=== PATIENT | female | born 1945 | race Two or more races ===

== ENCOUNTER 2023-02-25 20:39 | Inpatient (IN) | payer MEDICARE, OTHER ==
[~2023-02-25] VITALS: Ht 149.9 cm; Wt 51.7 kg
[2023-02-25] MEDS ORDERED: LEVO50TA8 PO (21:32)
[2023-02-25] MEDS ORDERED: FLUO20CA42 PO (21:35)
--- NOTE | 2023-02-25 22:00 | NUR ---
Patient taken down for CT.
--- NOTE | 2023-02-25 22:15 | NUR ---
Patient back from CT
--- NOTE | 2023-02-25 22:35 | NUR ---
Patient medically cleared by Dr. Zimmerman.
--- NOTE | 2023-02-25 22:45 | NUR ---
Report given to YVETTE Kent.
[2023-02-25] MEDS ORDERED: ROMO105S SQ (22:50)
[2023-02-25] MEDS ORDERED: ARIP300S3 IM (22:50)
[2023-02-26] MEDS ORDERED: MAG HYDROX/AL HYDROX/SIMETH 30 ML LIQUID UDC PO PRN
[2023-02-26] MEDS ORDERED: MAGNESIUM HYDROXIDE 30 ML LIQUID UDC PO PRN
[2023-02-26] MEDS ORDERED: ACETAMINOPHEN 325 MG TABLET PO PRN
[2023-02-26] MEDS ORDERED: CLONAZEPAM 0.5 MG TABLET PO PRN
--- NOTE | 2023-02-26 00:10 | NUR ---
Pt. admitted to [facility] rm 137 B, under care of /Dr. Hummel Belongs List completed YVETTE Kent aware of patient's arrival to unit.
--- NOTE | 2023-02-26 03:43 | NUR ---
Nursing Admission Note: Received 77 y/o female on a 5150 hold via WC and ER nurse. Upon F2F assessment pt was AOx2 (name and place). She mainly speaks Mandarin, but was able to understand and speak very little Welsh. She appeared unkept, disheveled, anxious, slightly down in mood and energy, and withdrawn. She had an unsteady gait and balance. x1 minimum assist with ambulation. She arrived with any assistive device. She requested to just go to sleep, so she was brought to her room where she stayed in bed sleeping for the rest of the night. This nurse explained to her her Advisement and gave her her Patient's Rights Handbook. Per hold, patient had become a gravely disabled and a danger to self. She has a PMH of bipolar disorder and depression. Her family (son and daughter) stated that she had been experiencing suicidal ideation. Patient was found to be banging her head and has not been showering. Pt's family also stated she had "laid out her clothes for when she dies." The family believes this recent psychotic episode resurfaced d/t her family wanting to move her out of her childhood home of 30 years. The family wants to move her out for safety reasons r/t being prone to falling. She will be under the care of Dr. Beltran and Dr. Hummel.
[2023-02-26 07:48] VITALS: BP 126/67
[2023-02-26] MEDS: ARIPIPRAZOLE 2 MG TABLET PO SCH (12:38)
--- NOTE | 2023-02-26 15:19 | NUR ---
Received patient is alert and oriented x 4 mandrin speaking only, patient able to verbalizer needs known . patient is isolative stay in her bed at all time, refused to eat or drink at all time.compliant with medication , no interaction with other peers refused to attend in group activity,denies any SI will continue close monitoring closely.
[2023-02-26 16:46] VITALS: BP 106/75
[2023-02-26 19:39] VITALS: BP 112/66
[2023-02-26] MEDS: MIRTAZAPINE 15 MG TABLET PO SCH (20:40)
--- NOTE | 2023-02-27 05:30 | NUR ---
Pt is ambulatory and needs stand by assistance with ADLs. Pt is depressed, Guarded and Isolative. Pt does not interact with staff or peers. Pt is able to voice basic needs and Denies SI.Pt was compliant with medications and nursing care on this shift. Pt took a shower with stand by assistance. Pt slept for 7.15 hours. safety measure implemented. continue to monitor for safety, continue with treatment plan.
[2023-02-27] MEDS: LEVOTHYROXINE SODIUM 50 MCG TABLET PO SCH (06:17)
[2023-02-27 07:46] VITALS: BP 97/69
[2023-02-27 08:15] LABS: HEMATOCRIT 43.9 % (31.2-41.9); MEAN CORPUSCULAR HEMOGLOBIN 31.9 uug (24.7-32.8); MEAN CORPUSCULAR VOLUME 95.5 fL (75.5-95.3); PLATELET COUNT (AUTO) 154 K/uL (179-408)
[2023-02-27] MEDS: ARIPIPRAZOLE 2 MG TABLET PO SCH (08:22)
[2023-02-27 08:56] LABS: CARBON DIOXIDE 16 mmol/L (21-32); CHLORIDE 106 mmol/L (98-107); CREATININE 0.8 mg/dL (0.6-1.3); GLUCOSE 67 mg/dL (74-106); MAGNESIUM 2.1 mg/dL (1.8-2.4); PHOSPHOROUS 2.2 mg/dL (2.5-4.9); POTASSIUM 2.9 mmol/L (3.5-5.1); UREA NITROGEN, BLOOD 16 mg/dL (7-18)
[2023-02-27] MEDS ORDERED: MEGESTROL ACETATE 20 MG TABLET PO SCH (11:15)
[2023-02-27] MEDS: MEGESTROL ACETATE 400 MG/10 ML LIQUID UDC PO SCH ×2 (11:54→19:35)
[2023-02-27] MEDS: POTASSIUM CHLORIDE 20 MEQ TAB.PRT.SR PO SCH ×2 (11:54→14:09)
[2023-02-27 12:24] LABS: THYROID STIMULATING HORMONE 2.329 mIU/mL (0.358-3.740)
--- NOTE | 2023-02-27 13:54 | NUR ---
patient is AAO x3,continue refused to eat or drink,she does not want to eat because she wants to . The patient appeared weak able to use walker to ambulate to restroom.compliant with all medication.noted potassium level is 2.9 Betaclan EXTENSION COURSE COORDINATOR made aware with ordered for potassium replacement.encourage patient to eat and drink and verbalizer her feelings,will continue close monitoring.
--- NOTE | 2023-02-27 14:51 | NUR ---
TERESA Family Contact: SW contacted pt's family member, Anish ([phone]) and left a voicemail for a call back to discuss pt's discharge plan.
[2023-02-27] MEDS ORDERED: NEUTRA PHOS PACKET PO ONE (16:00)
[2023-02-27 16:02] VITALS: BP 109/63
--- NOTE | 2023-02-27 16:25 | NUR ---
TERESA Family Contact: TERESA spoke with pt's daughter, Anish ([phone]) and briefly discussed the discharge plan. Anish stated there is no discharge plan at this time and she will discuss with this SW and MD throughout pt's care in the unit. Pt currently resides at home alone.
[2023-02-27 19:45] VITALS: BP 116/54
[2023-02-27] MEDS: MIRTAZAPINE 15 MG TABLET PO SCH (20:35)
[2023-02-28] MEDS: LEVOTHYROXINE SODIUM 50 MCG TABLET PO SCH (06:49)
[2023-02-28 07:30] VITALS: BP 107/66
[2023-02-28 07:59] LABS: HEMATOCRIT 47.3 % (31.2-41.9); MEAN CORPUSCULAR HEMOGLOBIN 31.5 uug (24.7-32.8); PLATELET COUNT (AUTO) 154 K/uL (179-408)
[2023-02-28 08:18] LABS: ALANINE AMINOTRANSFERASE 30 U/L (14-59); ALKALINE PHOSPHATASE 50 U/L (50-136); ASPARTATE AMINOTRANSFERASE 25 U/L (15-37); BILIRUBIN,DIRECT 0.2 mg/dL (0.0-0.2); BILIRUBIN,TOTAL 0.8 mg/dL (0.2-1.0); CARBON DIOXIDE 19 mmol/L (21-32); CHLORIDE 107 mmol/L (98-107); CREATININE 0.8 mg/dL (0.6-1.3); GLUCOSE 66 mg/dL (74-106); MAGNESIUM 2.2 mg/dL (1.8-2.4); PHOSPHOROUS 1.8 mg/dL (2.5-4.9); POTASSIUM 4.1 mmol/L (3.5-5.1); TOTAL PROTEIN, SERUM 6.9 g/dL (6.4-8.2); UREA NITROGEN, BLOOD 15 mg/dL (7-18)
[2023-02-28] MEDS: ARIPIPRAZOLE 2 MG TABLET PO SCH (08:58)
[2023-02-28] MEDS: MEGESTROL ACETATE 400 MG/10 ML LIQUID UDC PO SCH ×2 (08:59→17:11)
--- NOTE | 2023-02-28 14:33 | NUR ---
Received patient sleeping in her room. Patient is A/O X 3 to person, place. Patient is depressed, withdrawn, not engaged in verbal conversations, quiet, low energy, refusing to eat her meals, compliant with medications. Patient doesn't answer when asked if she has suicidal ideation. Patient ambulates independently. Requires no assistance with ADL. Reassurance given. Fall and safety precautions implemented.
[2023-02-28 15:24] VITALS: BP 103/59
--- NOTE | 2023-02-28 16:02 | NUR ---
TERESA Initial Discharge Note: Pt currently resides at home alone located at [address] [place] [id number] per pt and her daughter, Anish ([phone]). TERESA used a mandarin qa auditor ID #[id number] to help with pt's assessment. Anish stated pt does not have a DPOA or conservator. Per Anish, TERESA will continue to work with her and MD to discuss a safe discharge plan for the pt prior to discharge depending on pt's needs prior to discharge.
[2023-02-28] MEDS ORDERED: NEUTRA PHOS PACKET PO ONE (17:00)
[2023-02-28 19:54] VITALS: BP 100/61
[2023-02-28] MEDS: MIRTAZAPINE 15 MG TABLET PO SCH (20:37)
[2023-03-01] MEDS: LEVOTHYROXINE SODIUM 50 MCG TABLET PO SCH (06:18)
[2023-03-01 07:49] VITALS: BP 111/64
[2023-03-01 08:09] LABS: MEAN CORPUSCULAR HEMOGLOBIN 31.8 uug (24.7-32.8); MEAN CORPUSCULAR VOLUME 94.9 fL (75.5-95.3); PLATELET COUNT (AUTO) 161 K/uL (179-408)
[2023-03-01] MEDS: MEGESTROL ACETATE 400 MG/10 ML LIQUID UDC PO SCH ×2 (08:28→16:55)
[2023-03-01] MEDS: ARIPIPRAZOLE 2 MG TABLET PO SCH (08:28)
[2023-03-01 08:56] LABS: CARBON DIOXIDE 19 mmol/L (21-32); CHLORIDE 107 mmol/L (98-107); CREATININE 0.9 mg/dL (0.6-1.3); GLUCOSE 64 mg/dL (74-106); MAGNESIUM 2.1 mg/dL (1.8-2.4); PHOSPHOROUS 2.1 mg/dL (2.5-4.9); UREA NITROGEN, BLOOD 15 mg/dL (7-18)
[2023-03-01] MEDS: ENSURE ENLIVE (VAN) 240 ML LIQUID PO SCH ×3 (09:30→16:55)
[2023-03-01 09:54] LABS: *BLOOD, URINE 1+ (NEGATIVE); *CLARITY,URINE CLEAR (CLEAR); *COLOR,URINE YELLOW (YELLOW); *KETONES,URINE 4+ (NEGATIVE); LEUKOCYTE ESTERASE ,URINE 3+ (NEGATIVE); NITRITE, URINE NEGATIVE (NEGATIVE); UGLUCOSE NEGATIVE (NEGATIVE)
[2023-03-01 09:55] LABS: *BILIRUBIN,URIN 2+ (NEGATIVE)
[2023-03-01] MEDS: CEphaleXIN 500 MG CAPSULE PO SCH ×2 (14:00→22:32)
--- NOTE | 2023-03-01 15:04 | NUR ---
Received patient sleeping in her room. Patient is A/O X 2 to person. Patient is isolative, withdrawn, depressed, low energy, not engage in conversations or group activities, refusing to eat, compliant with medications. Patient requires minimal assistance with nursing care. Patient is encourage to verbalize concerns. Fall and safety precautions implemented.
[2023-03-01] MEDS ORDERED: NEUTRA PHOS PACKET PO ONE (16:00)
[2023-03-01 16:02] VITALS: BP 104/62
[2023-03-01] MEDS: OLANZAPINE 2.5 MG TABLET PO SCH (16:55)
[2023-03-01 18:36] LABS: BACTERIA,URINE MODERATE /HPF (NONE SEEN); WBC,URINE 50-80 /HPF (0-3)
[2023-03-01 18:37] LABS: SQUAMOUS EPITHELIAL CELL,UR FEW /HPF (NONE SEEN)
[2023-03-01 19:44] VITALS: BP 108/60
[2023-03-01] MEDS: MIRTAZAPINE 15 MG TABLET PO SCH (20:45)
[2023-03-02] MEDS: LEVOTHYROXINE SODIUM 50 MCG TABLET PO SCH (06:19)
--- NOTE | 2023-03-02 07:30 | NUR ---
GPS Nursing Notes: patient is lying in bed, awake, with no S/S of distress, denies pain or discomforts. Fall and safety precaution implemented. Will continue to monitor.
[2023-03-02 07:45] LABS: HEMATOCRIT 40.7 % (31.2-41.9); MEAN CORPUSCULAR VOLUME 94.7 fL (75.5-95.3); PLATELET COUNT (AUTO) 158 K/uL (179-408)
[2023-03-02 07:51] LABS: CARBON DIOXIDE 20 mmol/L (21-32); CHLORIDE 108 mmol/L (98-107); CREATININE 0.9 mg/dL (0.6-1.3); GLUCOSE 231 mg/dL (74-106); MAGNESIUM 1.9 mg/dL (1.8-2.4); PHOSPHOROUS 2.5 mg/dL (2.5-4.9); POTASSIUM 3.3 mmol/L (3.5-5.1); UREA NITROGEN, BLOOD 14 mg/dL (7-18)
[2023-03-02 08:08] VITALS: BP 119/59
[2023-03-02] MEDS: OLANZAPINE 2.5 MG TABLET PO SCH ×2 (08:57→17:13)
[2023-03-02] MEDS ORDERED: DRONABINOL 2.5 MG CAPSULE PO SCH (09:00)
[2023-03-02] MEDS ORDERED: POTASSIUM CHLORIDE 20 MEQ TAB.PRT.SR PO ONE (09:00)
[2023-03-02] MEDS: CEphaleXIN 500 MG CAPSULE PO SCH ×2 (09:01→20:08)
[2023-03-02] MEDS: ENSURE ENLIVE (VAN) 240 ML LIQUID PO SCH ×3 (09:07→17:13)
--- NOTE | 2023-03-02 12:30 | NUR ---
GPS Nursing notes: Patient is awake, with no S/S of distress, ambulates to the bathroom with FWW and 1 stand by assist. Patient drank Ensure this morning, with a lots of verbal prompting. Will continue to monitor patient for meals, Fall and safety precautions implemented, emotional support provided.
--- NOTE | 2023-03-02 15:12 | NUR ---
GPS Nursing notes: Patient pacing around in her room, also participated with self-care. Fall and precautions implemented. Emotional support provided. Will continue to monitor.
[2023-03-02 15:54] VITALS: BP 105/56
[2023-03-02 20:03] VITALS: BP 99/52
[2023-03-02] MEDS: MIRTAZAPINE 15 MG TABLET PO SCH (20:08)
--- NOTE | 2023-03-03 06:11 | NUR ---
GPS: Pt.slept 5.15 last night. Remains isolative,withdrawn and depressed. Refuses to eat meals but drinks water/fluids. Goes to the bathroom for elimination purposes. No adverse reactions noted from atb.to resolve UTI. Afebrile. Safety checks Q15 minutes continues.
[2023-03-03] MEDS: LEVOTHYROXINE SODIUM 50 MCG TABLET PO SCH (06:24)
[2023-03-03 07:25] LABS: HEMATOCRIT 45.4 % (31.2-41.9); MEAN CORPUSCULAR HEMOGLOBIN 31.6 uug (24.7-32.8); MEAN CORPUSCULAR VOLUME 94.9 fL (75.5-95.3); PLATELET COUNT (AUTO) 157 K/uL (179-408)
--- NOTE | 2023-03-03 07:29 | NUR ---
GPS Nursing Notes: Patient is lying in bed, awake, stated "Good Morning", no S/S of distress noted. Fall and safety precaution implemented.
[2023-03-03 08:31] LABS: CARBON DIOXIDE 26 mmol/L (21-32); CHLORIDE 111 mmol/L (98-107); CREATININE 0.7 mg/dL (0.6-1.3); GLUCOSE 154 mg/dL (74-106); MAGNESIUM 2.1 mg/dL (1.8-2.4); PHOSPHOROUS 2.2 mg/dL (2.5-4.9); POTASSIUM 3.9 mmol/L (3.5-5.1); UREA NITROGEN, BLOOD 18 mg/dL (7-18)
[2023-03-03] MEDS: OLANZAPINE 2.5 MG TABLET PO SCH ×2 (08:34→16:07)
[2023-03-03] MEDS: CEphaleXIN 500 MG CAPSULE PO SCH ×2 (08:34→20:47)
[2023-03-03 08:35] VITALS: BP 129/63
[2023-03-03] MEDS: ENSURE ENLIVE (VAN) 240 ML LIQUID PO SCH ×3 (08:35→16:14)
--- NOTE | 2023-03-03 09:42 | NUR ---
GPS Nursing Notes: Patient is awake in room, drank ensure, drinking water, but refused meal, offered patient to go to groups at this time, but said no. Will continue to monitor.
--- NOTE | 2023-03-03 13:25 | NUR ---
GPS Nursing notes: Patient is up and about using FWW, medication compliant, showered this morning, drinking fluids but not eating food.
[2023-03-03] MEDS ORDERED: NEUTRA PHOS PACKET PO ONE (15:45)
[2023-03-03 15:58] VITALS: BP 116/61
[2023-03-03 20:03] VITALS: BP 115/59
[2023-03-03] MEDS: MIRTAZAPINE 15 MG TABLET PO SCH (20:47)
[2023-03-04] MEDS: TEMAZEPAM 7.5 MG CAPSULE PO PRN (00:09)
--- NOTE | 2023-03-04 01:23 | NUR ---
Received patient in her room. Medication compliant and was willing to eat a snack and drink fluids. The patient has not been able to sleep, is confused and wondering in the hallway. Frequent redirection is needed. A PRN was given with little to no effect. Safety Stratiges are in place. Continuing to provide reassurance, reorientation and redirection, as well as encouraging oral intake of food and fluids. No acute issues at this time.
--- NOTE | 2023-03-04 04:42 | NUR ---
Patient has had 0.00 sleep tonight. Up many times, pacing in the hallway, sitting in a chair or standing by the door to the unit. Confused, but redirectable for short periods of time. Safety Stratiges are in place.
[2023-03-04] MEDS: LEVOTHYROXINE SODIUM 50 MCG TABLET PO SCH (05:54)
[2023-03-04 08:09] VITALS: BP 99/60
[2023-03-04] MEDS: CEphaleXIN 500 MG CAPSULE PO SCH ×2 (08:32→20:49)
[2023-03-04] MEDS: ENSURE ENLIVE (VAN) 240 ML LIQUID PO SCH ×3 (08:36→16:25)
[2023-03-04] MEDS: OLANZAPINE 2.5 MG TABLET PO SCH ×2 (10:17→16:24)
[2023-03-04] MEDS ORDERED: ENSURE ENLIVE (VAN) 240 ML LIQUID PO SCH (12:45)
--- NOTE | 2023-03-04 14:35 | NUR ---
Gps/Supervisor Scrap Preparation- Noticed patient in and out of her room , ambulating with front wheel walker. Fluid intake adequate , prune juice offered .Constipation noted , no bowel movement for 6 [address]Dr Sudhir Crump was called, order received.
[2023-03-04] MEDS: BISACODYL 5 MG TABLET.DR PO PRN (14:56)
[2023-03-04 17:14] VITALS: BP 98/54
[2023-03-04 20:00] VITALS: BP 99/55
[2023-03-04] MEDS: MIRTAZAPINE 15 MG TABLET PO SCH (20:49)
--- NOTE | 2023-03-05 06:02 | NUR ---
Patient slept 5.30 hours. Less paranoid but still withdrawn. Oral intake encouraged. Safety Stratiges are in place.
[2023-03-05] MEDS: LEVOTHYROXINE SODIUM 50 MCG TABLET PO SCH (06:23)
[2023-03-05 08:02] VITALS: BP 105/64
[2023-03-05] MEDS: OLANZAPINE 2.5 MG TABLET PO SCH (08:29)
[2023-03-05] MEDS: CEphaleXIN 500 MG CAPSULE PO SCH ×2 (08:30→21:03)
[2023-03-05] MEDS: BISACODYL 5 MG TABLET.DR PO PRN (08:30)
[2023-03-05] MEDS: ENSURE ENLIVE (VAN) 240 ML LIQUID PO SCH ×3 (08:31→17:07)
--- NOTE | 2023-03-05 14:00 | NUR ---
Gps/Fire Behavior Analyst- Adequate fluid intake, eating v=better, drinks her ensure.Isolative, stays in bed most of the time, encouraged attending am group therapy, claimed not interested. Ambulates to the bathroom with FWW , no BM noted, was able to drink prune juices and prn dulcolax cristobal 5 mg giiven po with no result , passing out gas. Encouraged to verbalized feelings and needs, family planning to bring food from home
[2023-03-05 16:09] VITALS: BP 119/66
--- NOTE | 2023-03-05 18:40 | NUR ---
Gps/Director Of Player Personnel- Daughter came in to visit, verbalized concerns regarding patient not having bowel movements for > 7 days, informed noted patient pacing out gas Called Dr Sudhir Crump , orders received.
[2023-03-05] MEDS ORDERED: FLEET ENEMA 133 ML BOTTLE RC PRN (19:00)
[2023-03-05 19:44] VITALS: BP 106/64
[2023-03-05] MEDS: OLANZAPINE 5 MG TABLET PO SCH (21:03)
[2023-03-05] MEDS: MIRTAZAPINE 15 MG TABLET PO SCH (21:03)
[2023-03-06] MEDS: LEVOTHYROXINE SODIUM 50 MCG TABLET PO SCH (06:33)
[2023-03-06 07:48] VITALS: BP 99/49
[2023-03-06] MEDS: ENSURE ENLIVE (VAN) 240 ML LIQUID PO SCH ×3 (08:48→17:01)
[2023-03-06] MEDS: OLANZAPINE 2.5 MG TABLET PO SCH (08:48)
[2023-03-06] MEDS: CEphaleXIN 500 MG CAPSULE PO SCH (08:48)
--- NOTE | 2023-03-06 14:10 | NUR ---
GPS: Nursing Notes: Destructive Behavior To Self: Patient is awake and responding to her name, isolative and withdrawn in her room, appetite has improved, patient is eating at least 50% or more. Plus, she is 100% compliant with her supplement. Depressed mood and flat affect, no interactions with peers, unable to formulate a viable plan for self care, continue to be compliant with her medications, unkempt appearance, continue to monitor for safety, continue with treatment plan.
[2023-03-06] MEDS: BISACODYL 5 MG TABLET.DR PO PRN (15:43)
[2023-03-06 16:31] VITALS: BP 123/53
[2023-03-06 19:52] VITALS: BP 112/51
[2023-03-06] MEDS: OLANZAPINE 5 MG TABLET PO SCH (20:22)
[2023-03-06] MEDS: MIRTAZAPINE 15 MG TABLET PO SCH (20:22)
--- NOTE | 2023-03-06 20:51 | NUR ---
Pt received lying in bed resting comfortably. Calm and cooperative, denies SI at this time. Isolative and withdrawn. Denies pain or discomfort at this time. Compliant with medications as ordered. In no acute distress.
[2023-03-07] MEDS: LEVOTHYROXINE SODIUM 50 MCG TABLET PO SCH (06:00)
[2023-03-07 07:30] VITALS: BP 112/54
[2023-03-07] MEDS: OLANZAPINE 2.5 MG TABLET PO SCH (08:31)
[2023-03-07] MEDS: ENSURE ENLIVE (VAN) 240 ML LIQUID PO SCH ×3 (08:31→16:32)
--- NOTE | 2023-03-07 10:57 | NUR ---
TERESA Family Contact: SW contacted pt's daughter, Anish ([phone]) and left a voicemail for a call back to discuss pt's discharge plan for this 03/10/[address] NEVES Ikele. Addendum: 03/07/23 at 1100 by TROY ELLIOTT RN CORRECT INFORMATION DOCUMENTED BY WRONG STAFF MEMBER.
--- NOTE | 2023-03-07 11:00 | NUR ---
SW Family Contact: SW contacted pt's daughter, Anish ([phone]) and left a voicemail for a call back to discuss pt's discharge plan for this 03/10/23 per DNP, Rosendo Henriquez.
--- NOTE | 2023-03-07 14:22 | NUR ---
GPS: Nursing Notes: Destructive Behavior To Self: Patient is awake and responding to her name, cooperative with nursing care, denies SI/HI, compliant with her medications, eating at least 75% of her meals, plus 100% of her supplements, ambulatory with fww, isolative and withdrawn in her room this am, needs a lot of prompting for minimal participation in therapeutic groups, unable to formulate a viable plan for self care, continue to monitor for safety, continue with treatment plan.
[2023-03-07 15:21] VITALS: BP 138/68
--- NOTE | 2023-03-07 15:29 | NUR ---
TERESA Family Contact: TERESA contacted pt's daughter, Anish ([phone]) and discussed pt's current status and anticipated discharge plan for this 03/09/28. TERESA asked Anish about pt's discharge plan. Anish stated pt is not ready to discharge and she would like to speak to Dr. Beltran. SW informed Dr. Beltran.
--- NOTE | 2023-03-07 18:33 | NUR ---
GPS Nursing Notes: Patient had bowel movement and Patient notice slight bloody stool, up on visual assessment of rectal area notice inflamed Hemorrhoids. Called jazz Magallanes ordered fo Anusol HC suppository via rectal x 5 days to start tonight. Will continue to monitor.
[2023-03-07 20:00] VITALS: BP 127/56
--- NOTE | 2023-03-07 20:00 | NUR ---
GPS:NURSES NOTE: PT RECEIVED ISOLATIVE IN ROOM LYING ON BED ASLEEP NO SIGNS OF DISTRESS NOTED. PT AWAKENED INFORMED PATIENT MEDICATION IS DUE TO BE TAKEN NO SIGNS OF AGGRESSION BUT PATIENT REFUSED ANUSOL HC FOR HEMMORHOIDS. PATIENT BACK IN BED SLEEPING FALL AND SAFETY MAINTAIN. PTON 14 DAY HOLD WHICH EXPIRES ON THE 03/14/2023. WILL CONTINUE PLAN OF CARE.
[2023-03-07] MEDS: HYDROCORTISONE RECTAL SUPP 25 MG EACH RC SCH (21:00)
[2023-03-07] MEDS: TEMAZEPAM 7.5 MG CAPSULE PO PRN (21:17)
[2023-03-07] MEDS: OLANZAPINE 5 MG TABLET PO SCH (21:18)
[2023-03-07] MEDS: MIRTAZAPINE 15 MG TABLET PO SCH (21:21)
[2023-03-08] MEDS: LEVOTHYROXINE SODIUM 50 MCG TABLET PO SCH (06:58)
[2023-03-08 07:30] VITALS: BP 113/59
[2023-03-08] MEDS: HYDROCORTISONE RECTAL SUPP 25 MG EACH RC SCH ×2 (09:14→20:33)
[2023-03-08] MEDS: OLANZAPINE 2.5 MG TABLET PO SCH (09:14)
[2023-03-08] MEDS: ENSURE ENLIVE (VAN) 240 ML LIQUID PO SCH ×3 (09:15→17:27)
--- NOTE | 2023-03-08 15:06 | NUR ---
TERESA Family Contact: SW contacted pt's daughter, Anish ([phone]) and left a voicemail for a call back to discuss pt's discharge plan.
[2023-03-08 15:15] VITALS: BP 115/54
--- NOTE | 2023-03-08 15:27 | NUR ---
Received patient sleeping in her room. Patient is A/O X 2 to person. Patient is withdrawn, isolative, quiet, cooperative with nursing care, and compliant with medications. Patient requires minimal assistance with ADL. Patient is encourage to vent feelings and emotions. Fall and safety precautions implemented.
[2023-03-08 19:57] VITALS: BP 119/59
[2023-03-08] MEDS: OLANZAPINE 5 MG TABLET PO SCH (20:33)
[2023-03-08] MEDS: MIRTAZAPINE 15 MG TABLET PO SCH (20:33)
[2023-03-09] MEDS: LEVOTHYROXINE SODIUM 50 MCG TABLET PO SCH (06:39)
[2023-03-09 07:30] VITALS: BP 106/57
[2023-03-09] MEDS: OLANZAPINE 2.5 MG TABLET PO SCH (09:22)
[2023-03-09] MEDS: HYDROCORTISONE RECTAL SUPP 25 MG EACH RC SCH ×2 (09:22→20:38)
[2023-03-09] MEDS: ENSURE ENLIVE (VAN) 240 ML LIQUID PO SCH ×3 (09:23→17:23)
[2023-03-09 15:17] VITALS: BP 115/55
--- NOTE | 2023-03-09 16:26 | NUR ---
Patient is confinding in her room most of the time, quiet, calm, cooperative, compliant with medications. Patient is A/O X 2 to person. Patient is not engage in group activities or interaction with peers. Reassurance given. Fall and safety precautions implemented.
[2023-03-09 19:53] VITALS: BP 114/41
[2023-03-09] MEDS: OLANZAPINE 5 MG TABLET PO SCH (20:38)
[2023-03-09] MEDS: MIRTAZAPINE 15 MG TABLET PO SCH (20:38)
--- NOTE | 2023-03-10 05:02 | NUR ---
Patient is mostly isolative and does not come out of her room , even with encouragement. The patient did have a BM after the suppository was given. Oral intake encourage. A shower will be offered this am. Sleep hours have been 7.30 so far. Safety Stratiges are in place. The patient remains medication compliant.
[2023-03-10] MEDS: LEVOTHYROXINE SODIUM 50 MCG TABLET PO SCH (06:06)
[2023-03-10 08:00] VITALS: BP 106/60
[2023-03-10] MEDS: HYDROCORTISONE RECTAL SUPP 25 MG EACH RC SCH ×2 (08:49→20:58)
[2023-03-10] MEDS: OLANZAPINE 2.5 MG TABLET PO SCH (08:49)
[2023-03-10] MEDS: ENSURE ENLIVE (VAN) 240 ML LIQUID PO SCH ×3 (08:50→17:45)
--- NOTE | 2023-03-10 11:58 | NUR ---
TERESA Discharge Update: TERESA contacted pt's daughter, Anish ([phone]) and discussed pt's anticipated discharge plan for Monday03/13/23. TERESA re informed Anish that pt's hold ends on Monday and per Dr. Beltran, if pt is stable for discharge by Monday, she can discharge to a temporary fdc facility. Anish stated she is open to discharge the pt to a temporary fdc facility in [facility] or [place] close to her. TERESA informed Anish that Dr. Beltran is going to call her and discuss pt's treatment plan and plan for discharge next week as well. Anish is aware and agreeable to follow-up on Monday.
[2023-03-10 16:00] VITALS: BP 138/64
--- NOTE | 2023-03-10 17:00 | NUR ---
Received patient sleeping in her room. Patient is withdrawn, depressed, isolative, preoccupied about being constipated. Patient is compliant with medications, cooperative with nursing care. Patient is encourage to vent feelings and emotions. Fall and safety precautions implemented.
[2023-03-10 20:55] VITALS: BP 115/51
[2023-03-10] MEDS: MIRTAZAPINE 15 MG TABLET PO SCH (20:58)
[2023-03-10] MEDS: OLANZAPINE 5 MG TABLET PO SCH (20:58)
--- NOTE | 2023-03-11 05:44 | NUR ---
No changes from previous night. Patient continues to stay in her room, despite on going attempts to encourage her to come out for brief periods of time. Patient was willing to shower however, but went right back to the room when done. She did have a small BM post suppository. Oral fluids have been provided throughout the shift. Safety Stratiges remain in place, which include frequent rounding and assessment of the patients needs.
[2023-03-11] MEDS: LEVOTHYROXINE SODIUM 50 MCG TABLET PO SCH (05:58)
[2023-03-11 07:35] VITALS: BP 116/64
[2023-03-11] MEDS: HYDROCORTISONE RECTAL SUPP 25 MG EACH RC SCH ×2 (08:38→21:00)
[2023-03-11] MEDS: ENSURE ENLIVE (VAN) 240 ML LIQUID PO SCH ×3 (08:38→16:55)
[2023-03-11] MEDS: OLANZAPINE 2.5 MG TABLET PO SCH (08:38)
[2023-03-11 16:08] VITALS: BP 117/63
[2023-03-11] MEDS ORDERED: PETROLATUM,WHITE JELLY 28.35 GM TUBE TP PRN (16:30)
--- NOTE | 2023-03-11 16:39 | NUR ---
GPS: Nursing Notes: Destructive Behavior To Self: Patient is awake and responding to her name, anxious affect this am, fixated with the trash bags, argumentative, believes that the police came to see her about the trash bags, redirected, but gets easily frustrated when redirected, unable to formulate a viable plan for self care, encourage to participate in therapeutic groups, but resistant to care at times, continue to monitor for safety, eating at least 75% or more of her meal trays, plus her supplement, denies SI/HI, continue with treatment plan.
[2023-03-11 20:00] VITALS: BP 116/60
[2023-03-11] MEDS: MIRTAZAPINE 15 MG TABLET PO SCH (21:06)
[2023-03-11] MEDS: OLANZAPINE 5 MG TABLET PO SCH (21:06)
--- NOTE | 2023-03-12 01:18 | NUR ---
Received patient at the start of the shift in the bathroom. After the patient came out, this life insurance underwriter communicated with her using the communication sheet, and gestures. The patient had a bright affect the whole time. The 2100 scheduled suppository, was not found in the patients casette. The patient had refused it anyway ,prior to this life insurance underwriter noticing it was not there. The patient was compliant with the PO medications. Snack was offered, and oral fluids provided and encouraged. The patient did not want to leave her room at anytime and kept to herself. Safety Stratiges are in place, including frequent rounding. Continuing to monitor for paranoia and isolative behaviors.
[2023-03-12] MEDS: LEVOTHYROXINE SODIUM 50 MCG TABLET PO SCH (06:14)
[2023-03-12 07:35] LABS: HEMATOCRIT 37.5 % (31.2-41.9); MEAN CORPUSCULAR HEMOGLOBIN 31.6 uug (24.7-32.8); MEAN CORPUSCULAR VOLUME 96.4 fL (75.5-95.3); PLATELET COUNT (AUTO) 168 K/uL (179-408)
[2023-03-12 07:44] VITALS: BP 111/51
[2023-03-12 08:21] LABS: BILIRUBIN,TOTAL 0.2 mg/dL (0.2-1.0); CREATININE 0.9 mg/dL (0.6-1.3); MAGNESIUM 2.4 mg/dL (1.8-2.4); PHOSPHOROUS 3.2 mg/dL (2.5-4.9); POTASSIUM 3.5 mmol/L (3.5-5.1); TOTAL PROTEIN, SERUM 6.5 g/dL (6.4-8.2)
[2023-03-12] MEDS: ENSURE ENLIVE (VAN) 240 ML LIQUID PO SCH ×3 (08:41→16:59)
[2023-03-12] MEDS: OLANZAPINE 2.5 MG TABLET PO SCH (08:41)
[2023-03-12] MEDS: HYDROCORTISONE RECTAL SUPP 25 MG EACH RC SCH (09:00)
--- NOTE | 2023-03-12 14:13 | NUR ---
GPS: Nursing Notes: Destructive Behavior To Self: Patient is awake and responding to her name, compliant with her medication, resistant with nursing care, unable to formulate a viable plan for self care, gets easily anxious when redirected, forgetful at times, needs prompting for minimal participation in therapeutic groups, eating at least 75% of her meal trays, compliant with her supplement, no self destructive behavior noted, continue to monitor for safety, continue with treatment plan.
[2023-03-12 16:15] VITALS: BP 119/62
[2023-03-12 19:54] VITALS: BP 112/55
[2023-03-12] MEDS: OLANZAPINE 5 MG TABLET PO SCH (21:00)
[2023-03-12] MEDS: MIRTAZAPINE 15 MG TABLET PO SCH (21:00)
--- NOTE | 2023-03-12 23:16 | NUR ---
GPS: NURSING NOTE: PT LYING IN BED ISOLATIVE FROM OTHER PEERS FALL PT IS COMPLIANT WITH MEDICATION. PT HAS A FLAT. BUT NO SIGNS OF AGGRESSIVE BEHAVIOR NOTED FALL AND SAFETY MAINTAINED. CONTINUE PLAN OF CARE AND MONITOR FALL ALONG WITH SAFETY.
[2023-03-13] MEDS: LEVOTHYROXINE SODIUM 50 MCG TABLET PO SCH (06:49)
--- NOTE | 2023-03-13 07:11 | NUR ---
GPS: NURSING NOTE: PT REFUSED LEVOTHYROXINE THIS AM ENDORSED TO AM NURSE FIONA.
[2023-03-13 08:18] VITALS: BP 131/71
[2023-03-13] MEDS: OLANZAPINE 2.5 MG TABLET PO SCH (08:54)
[2023-03-13] MEDS: ENSURE ENLIVE (VAN) 240 ML LIQUID PO SCH ×3 (08:54→16:36)
--- NOTE | 2023-03-13 10:46 | NUR ---
TERESA Discharge Update: TERESA contacted pt's daughter, Anish ([phone]) and left a voicemail for a call back to discuss pt's discharge plan. TERESA briefly stated that per the last conversation on 03/10/23, pt is accepted to [facility] located at [address] [place] [phone] upon discharge. TERESA also informed her that [facility] [address] [place] [id number] ([phone]) does not have bed availability. TERESA will continue to follow-up.
[2023-03-13 11:36] LABS: *BILIRUBIN,URIN NEGATIVE (NEGATIVE); *BLOOD, URINE NEGATIVE (NEGATIVE); *CLARITY,URINE CLEAR (CLEAR); *COLOR,URINE YELLOW (YELLOW); *KETONES,URINE NEGATIVE (NEGATIVE); *UROBILINOGEN,URINE 0.2 E.U./dl (NORMAL); LEUKOCYTE ESTERASE ,URINE TRACE (NEGATIVE); NITRITE, URINE NEGATIVE (NEGATIVE); UGLUCOSE 2+ (NEGATIVE)
--- NOTE | 2023-03-13 14:42 | NUR ---
GPS: Nursing Notes: Destructive Behavior To Self: Patient is awake and responding to her name, disoriented, impaired judgment, gets easily anxious when redirected, recently fixated with the trash paper bags position, redirected and reoriented during shift, gets easily anxious when redirected. Patient is eating at least 75% or more of her meal trays including 100% of her supplements, unable to formulate a viable plan for self care, ambulatory, self care, continue to monitor for safety, continue with treatment plan.
[2023-03-13 16:18] VITALS: BP 116/54
[2023-03-13 19:47] VITALS: BP 126/64
[2023-03-13 20:35] LABS: RBC,URINE 0-3 /HPF (0-3)
[2023-03-13] MEDS: MIRTAZAPINE 15 MG TABLET PO SCH (21:02)
[2023-03-13] MEDS: OLANZAPINE 5 MG TABLET PO SCH (21:02)
[2023-03-14] MEDS: LEVOTHYROXINE SODIUM 50 MCG TABLET PO SCH (06:09)
--- NOTE | 2023-03-14 06:09 | NUR ---
Patient slept 8.00 last night. Up for a very short time, to use bathroom, and take medications. Oral fluids encouraged. No overt confusion noted. Safety Stratiges are in place ,including frequent rounding. Reorientation and reassurance is being provided as needed. No acute issues during the night.
[2023-03-14 08:04] VITALS: BP 118/64
[2023-03-14] MEDS: OLANZAPINE 2.5 MG TABLET PO SCH (08:43)
[2023-03-14] MEDS: ENSURE ENLIVE (VAN) 240 ML LIQUID PO SCH (08:44)
--- NOTE | 2023-03-14 15:39 | NUR ---
TERESA Discharge Update: TERESA contacted pt's daughter, Anish ([phone]) and left a voicemail for a call back to discuss pt's discharge plan for 03/15/23 at 11AM. TERESA restated that per the last conversation on 03/10/23, pt is accepted to [facility] located at [address] [place] [phone] upon discharge. TERESA re informed Anish that [facility] [address] [place] [address] ([phone]) does not have bed availability. TERESA stated this curriculum writer will call her again prior to discharge on 03/15/23 at 11AM.
[2023-03-14 16:13] VITALS: BP 114/54
--- NOTE | 2023-03-14 16:32 | NUR ---
GPS: Nursing Notes: Destructive Behavior To Self: Patient is awake and responding to her name, compliant with her medications, ambulatory, needs minimal assistance with ADL's, disoriented, gets easily anxious when redirected, unable to formulate a viable plan for self care, her appetite has increased eating 100% of her meals and 100% of her supplements, denies SI, continue to monitor for safety, continue with treatment plan.
[2023-03-14 20:00] VITALS: BP 116/56
[2023-03-14] MEDS: MIRTAZAPINE 15 MG TABLET PO SCH (21:15)
[2023-03-14] MEDS: NITROFURANTOIN/NITROFURAN MAC 100 MG CAPSULE PO SCH (21:15)
[2023-03-14] MEDS: OLANZAPINE 5 MG TABLET PO SCH (21:15)
--- NOTE | 2023-03-15 05:12 | NUR ---
Patient slept 4.45 hours, was up and down during the night, but quiet and in no distress.. Some confusion noted, but she was easily redirected and less anxious than the previous nights. Patient is on antibiotic for a UTI. Earlier in the shift, the patient requested a sandwich and ate 100% and drank plenty of water. Safety Stratiges are in place and ongoing assistance with ADLs provided as needed. Possible discharged for today.
[2023-03-15] MEDS: LEVOTHYROXINE SODIUM 50 MCG TABLET PO SCH (06:31)
[2023-03-15 07:46] VITALS: BP 120/56
[2023-03-15] MEDS: NITROFURANTOIN/NITROFURAN MAC 100 MG CAPSULE PO SCH (08:29)
[2023-03-15] MEDS: OLANZAPINE 2.5 MG TABLET PO SCH (08:29)
--- NOTE | 2023-03-15 09:16 | NUR ---
TERESA Discharge Note: Pt will be discharged to [facility] located at [address] [place] [phone] ([phone]) via Ambulance transportation at 11AM. TERESA spoke with Lynda negron at the facility who states they are ready to accept the pt today. Pt is aware and agreeable with discharge plan. Pts daughter, Anish ([phone]) is aware and agreeable with the discharge plan. Pt is alert and oriented x3, is unable to plan for self-care at this time. However, pt is willing to accept care at SNF. Pt denies any suicidal or homicidal ideation. Pt will follow-up at the facility with Psychiatrist, Dr. Beltran ([phone]) and Centrifugal Wax Molder, Dr. Hines. Pt presents with calm mood and congruent affect. PHARMACY: [facility] ([phone]) [address] [facility] [address].
--- NOTE | 2023-03-15 09:21 | NUR ---
Received pt in room sitting in bed. Pt seems calm on approach. Pt is A/O X3 but confused at times. Pt is ambulatory, self care and needs minimal assistance with ADLs. Pt denies SI and verbally contracted with this adjusto writer operator for safety. Pt is compliant with medications and nursing care. Continue to monitor for safety , continue with treatment plan.
--- NOTE | 2023-03-15 12:15 | NUR ---
Received orders to discharged pt [facility] located at [address] [place] [phone] ([phone]) via Ambulance transportation at 11AM. Pt is aware and agreeable with discharge plan. Pts daughter, Anish ([phone]) is aware and agreeable with the discharge plan. Pt is alert and oriented x3, self care ambulatory and needs minimal assistance with ADLs . Pt denies SI/HI, AH/VH, SOB and pain. No behavioral issues noted, no acute distress noted. Pt presents with calm mood and congruent affect. Pt was discharge with all belongings.
--- NOTE | 2023-03-15 12:15 | NUR ---
Pt will be discharged to [facility] located at [address] [place] [phone] ([phone]) via Ambulance transportation at 11AM. SW spoke with Lynda negron at the facility who states they are ready to accept the pt today. Pt is aware and agreeable with discharge plan. Pts daughter, Anish ([phone]) is aware and agreeable with the discharge plan. Pt is alert and oriented x3, is unable to plan for self-care at this time. However, pt is willing to accept care at SNF. Pt denies any suicidal or homicidal ideation. Pt will follow-up at the facility with Psychiatrist, Dr. Beltran ([phone]) and Housekeeping Assistant, Dr. Hines. Pt presents with calm mood and congruent affect. PHARMACY: [facility] ([phone]) [address] [facility] [address].
== END 2023-03-15 12:00 | DRG 885 ==
LOC: ER 20:39 → GPS 23:44
PROVIDERS: ADMIT Psychiatry & Neurology Psychiatry; ATTEND Nurse Practitioner Acute Care
DX: F31.32 Bipolar disorder, current episode depressed, moderate (principal); E44.0 Moderate protein-calorie malnutrition; N39.0 Urinary tract infection, site not specified; E03.9 Hypothyroidism, unspecified; F25.9 Schizoaffective disorder, unspecified; F41.9 Anxiety disorder, unspecified; E87.6 Hypokalemia; E88.09 Other disorders of plasma-protein metabolism, not elsewhere classified; M81.0 Age-related osteoporosis without current pathological fracture; M19.90 Unspecified osteoarthritis, unspecified site; G47.00 Insomnia, unspecified; E83.39 Other disorders of phosphorus metabolism; R62.7 Adult failure to thrive; Z79.890 Hormone replacement therapy; Z79.899 Other long term (current) drug therapy; F50.89 Other specified eating disorder; Z68.23 Body mass index [BMI] 23.0-23.9, adult
CPT/HCPCS: 36415; 70450; 71045; 83735; 84100; 84443; 85025; A4663; J8999

== ENCOUNTER 2024-03-04 12:21 | Inpatient (IN) | payer MEDICARE, OTHER ==
[~2024-03-04] VITALS: Ht 152.4 cm; Wt 60.1 kg
[~2024-03-04 12:21] MED LIST: LEVO50TA8 PO; ROMO105S SQ
[2024-03-04] MEDS ORDERED: CALC-1276 PO (12:48)
[2024-03-04] MEDS ORDERED: GABA600T12 PO (12:48)
[2024-03-04] MEDS ORDERED: FOLI0.4T6 PO (12:48)
[2024-03-04] MEDS ORDERED: POLY17PO4 PO (12:48)
[2024-03-04] MEDS ORDERED: LIDO30AD10 TD (12:48)
[2024-03-04] MEDS ORDERED: OLAN5TAB70 PO (12:48)
[2024-03-04] MEDS ORDERED: MAGN400O6 PO (12:48)
[2024-03-04] MEDS ORDERED: METF-442 PO (12:48)
[2024-03-04] MEDS ORDERED: MULT-594 PO (12:48)
[2024-03-04] MEDS ORDERED: IBUP-2314 PO (12:48)
[2024-03-04] MEDS ORDERED: MAG355OR18 PO (12:48)
[2024-03-04] MEDS ORDERED: TRAM100T23 PO (12:48)
[2024-03-04] MEDS ORDERED: LEVO75TA7 PO (12:48)
[2024-03-04] MEDS ORDERED: DOCU240C26 PO (12:48)
[2024-03-04] MEDS ORDERED: MULT-1119 PO (12:48)
[2024-03-04 13:41] LABS: CALCIUM 9.9 mg/dL (8.5-10.1); CREATININE 0.9 mg/dL (0.6-1.3); POTASSIUM 3.8 mmol/L (3.5-5.1)
[2024-03-04 14:05] LABS: BASOPHILS % (AUTO) 0.5 % (0.0-2.0); HEMATOCRIT 42.3 % (31.2-41.9); HEMOGLOBIN 14.3 g/dL (10.9-14.3); LYMPHOCYTES # (AUTO) 1.6 K/uL (0.8-4.8); LYMPHOCYTES % (AUTO) 26.6 % (20.5-51.5); MEAN CORPUSCULAR HEMOGLOBIN 30.9 uug (24.7-32.8); MEAN CORPUSCULAR HGB CONC 34 g/dL (32.3-35.6); MEAN CORPUSCULAR VOLUME 91.7 fL (75.5-95.3); MONOCYTES % (AUTO) 4.9 % (0.0-11.0); NEUTROPHILS # (AUTO) 4.1 K/uL (1.8-8.9); PLATELET COUNT (AUTO) 222 K/uL (179-408); RED BLOOD CELL COUNT(AUTO) 4.61 MIL/uL (3.63-4.92); RED CELL DISTRIBUTION WIDTH 13.2 % (12.3-17.7); WHITE BLOOD COUNT (AUTO) 6.2 K/uL (3.8-11.8)
[2024-03-04 14:06] LABS: EOSINOPHILS # (AUTO) 0.1 K/uL (0.0-0.7); MONOCYTES # (AUTO) 0.3 K/uL (0.1-1.30)
[2024-03-04 14:07] LABS: DIFFERENTIAL COMMENT 1
[2024-03-04] MEDS ORDERED: HYDR-3980 PO (14:35)
[2024-03-04] MEDS ORDERED: ONDANSETRON ODT 4 MG TAB.RAPDIS ONE (14:55)
[2024-03-04] MEDS ORDERED: HYDROMORPHONE 1 MG/1 ML DISP.SYRIN ONE (14:55)
[2024-03-04] MEDS ORDERED: ONDANSETRON HCL 4 MG TABLET ONE (14:56)
[2024-03-04] MEDS: ONDANSETRON HCL 4 MG TABLET PO ONE (14:59)
[2024-03-04] MEDS ORDERED: MAGNESIUM HYDROXIDE 30 ML LIQUID UDC PO PRN ×2 (15:00→15:15)
[2024-03-04] MEDS ORDERED: IBUPROFEN 200 MG TABLET PO PRN ×2 (15:00→20:15)
[2024-03-04] MEDS ORDERED: LIDOCAINE 5% PATCH TD PRN (15:00)
[2024-03-04] MEDS ORDERED: MAG HYDROX/AL HYDROX/SIMETH 30 ML LIQUID UDC PO PRN (15:00)
[2024-03-04] MEDS: HYDROMORPHONE 1 MG/1 ML DISP.SYRIN IM ONE (15:00)
[2024-03-04] MEDS ORDERED: DEXTROSE 50% 50 ML DISP.SYRIN IV PRN (15:15)
[2024-03-04] MEDS ORDERED: ACETAMINOPHEN 325 MG TABLET PO PRN (15:15)
[2024-03-04] MEDS ORDERED: ONDANSETRON 4 MG/2 ML VIAL IV PRN (15:15)
[2024-03-04] MEDS ORDERED: REMEDY ESSENTIAL ZINC PASTE 113 GM TP PRN (15:15)
[2024-03-04] MEDS: BLOOD SUGAR DIAGNOSTIC 1 EACH STRIP VI SCH (16:35)
[2024-03-04] MEDS ORDERED: Medication Not On Formulary EA (Metformin Hcl 1,000 MG) PO SCH (17:00)
[2024-03-04] MEDS ORDERED: Medication Not On Formulary EA (Docusate Calcium 240 MG) PO SCH (21:00)
[2024-03-04 23:27] VITALS: BP 153/66; TEMP 98; O2SAT 95
[2024-03-04] MEDS: OLANZAPINE 5 MG TABLET PO SCH (23:41)
[2024-03-04] MEDS: METFORMIN HCL 500 MG TABLET PO SCH (23:41)
[2024-03-04] MEDS: DOCUSATE SODIUM 250 MG CAPSULE PO SCH (23:41)
[2024-03-04] MEDS: GABAPENTIN 300 MG CAPSULE PO SCH (23:42)
[2024-03-05] MEDS ORDERED: IBUPROFEN 600 MG TABLET PO PRN (06:00)
[2024-03-05] MEDS ORDERED: LIDOCAINE 5% PATCH TD PRN (06:00)
[2024-03-05 06:16] VITALS: BP 113/60; TEMP 97.9; O2SAT 97
[2024-03-05] MEDS ORDERED: FOLIC ACID 0.4 MG TABLET PO SCH ×2 (09:00)
[2024-03-05] MEDS ORDERED: Medication Not On Formulary EA (Multivitamin (Multi Vitamin Daily) 1 EACH) PO SCH (09:00)
[2024-03-05] MEDS: LEVOTHYROXINE SODIUM 75 MCG TABLET PO SCH (09:15)
[2024-03-05] MEDS: MIRALAX 17 GM POWD.PACK PO SCH (09:16)
[2024-03-05] MEDS: MULTIVITAMINS,THERAPEUTIC TABLET PO SCH (09:16)
[2024-03-05 11:37] VITALS: BP 118/58; TEMP 97.9; O2SAT 94
[2024-03-05] MEDS: INSULIN REGULAR, HUMAN 300 UNIT/3 ML VIAL SQ PRN (11:54)
[2024-03-05] MEDS: HYDROCODONE/APAP 10-325 MG TABLET PO PRN (13:08)
[2024-03-05 15:40] VITALS: BP 115/63; TEMP 97.4; O2SAT 93
[2024-03-06 06:00] VITALS: BP 108/58; TEMP 98; O2SAT 95
[2024-03-06] MEDS: LEVOTHYROXINE SODIUM 75 MCG TABLET PO SCH (06:24)
[2024-03-06] MEDS: FOLIC ACID 1 MG TABLET PO SCH (08:36)
[2024-03-06] MEDS: GLIMEPIRIDE 2 MG TABLET PO SCH (08:36)
[2024-03-06 11:41] VITALS: BP 113/61; TEMP 98.2; O2SAT 94
[2024-03-06 15:12] LABS: BASOPHILS # (AUTO) 0.1 K/UL (0.0-0.2); BASOPHILS % (AUTO) 0.6 % (0.0-2.0); DIFFERENTIAL COMMENT 0; EOSINOPHILS # (AUTO) 0.1 K/uL (0.0-0.7); EOSINOPHILS % (AUTO) 1.4 % (0.0-7.0); HEMATOCRIT 39.9 % (31.2-41.9); HEMOGLOBIN 13.2 g/dL (10.9-14.3); LYMPHOCYTES # (AUTO) 1.9 K/uL (0.8-4.8); LYMPHOCYTES % (AUTO) 23.7 % (20.5-51.5); MEAN CORPUSCULAR HEMOGLOBIN 30.4 uug (24.7-32.8); MEAN CORPUSCULAR HGB CONC 33 g/dL (32.3-35.6); MEAN CORPUSCULAR VOLUME 92.1 fL (75.5-95.3); MONOCYTES # (AUTO) 0.3 K/uL (0.1-1.30); NEUTROPHILS # (AUTO) 5.6 K/uL (1.8-8.9); NEUTROPHILS % (AUTO) 70.3 % (38.5-71.5); PLATELET COUNT (AUTO) 193 K/uL (179-408); RED BLOOD CELL COUNT(AUTO) 4.33 MIL/uL (3.63-4.92); RED CELL DISTRIBUTION WIDTH 13.3 % (12.3-17.7); WHITE BLOOD COUNT (AUTO) 7.9 K/uL (3.8-11.8)
[2024-03-06 15:26] LABS: ALANINE AMINOTRANSFERASE 25 U/L (14-59); ALBUMIN 3.2 g/dL (3.4-5.0); ALKALINE PHOSPHATASE 51 U/L (50-136); ASPARTATE AMINOTRANSFERASE 12 U/L (15-37); BILIRUBIN,TOTAL 0.2 mg/dL (0.2-1.0); CALCIUM 8.7 mg/dL (8.5-10.1); CARBON DIOXIDE 20 mmol/L (21-32); CHLORIDE 106 mmol/L (98-107); CREATININE 1.2 mg/dL (0.6-1.3); GLUCOSE 141 mg/dL (74-106); POTASSIUM 3.9 mmol/L (3.5-5.1); SODIUM SERUM 142 mmol/L (136-145); TOTAL PROTEIN, SERUM 6.5 g/dL (6.4-8.2); UREA NITROGEN, BLOOD 23 mg/dL (7-18)
[2024-03-06 15:58] LABS: MAGNESIUM 2.2 mg/dL (1.8-2.4); PHOSPHOROUS 3.3 mg/dL (2.5-4.9); POTASSIUM 3.9 mmol/L (3.5-5.1); SODIUM SERUM 142 mmol/L (136-145); THYROID STIMULATING HORMONE 0.412 mIU/mL (0.358-3.740)
[2024-03-06 15:59] LABS: CALCIUM 8.7 mg/dL (8.5-10.1); CARBON DIOXIDE 20 mmol/L (21-32); CHLORIDE 106 mmol/L (98-107); CREATININE 1.2 mg/dL (0.6-1.3); GLUCOSE 141 mg/dL (74-106); UREA NITROGEN, BLOOD 23 mg/dL (7-18)
[2024-03-06 16:13] LABS: C-REACTIVE PROTEIN 0.19 mg/dL (0.00-0.30)
[2024-03-06 16:18] VITALS: BP 120/66; TEMP 98.2; O2SAT 94
[2024-03-06] MEDS: CALCIUM CARB/VITAMIN D 500MG-200UNITS TABLET PO SCH (16:54)
[2024-03-06 20:00] VITALS: BP 120/62; TEMP 98; O2SAT 94
[2024-03-07 06:00] VITALS: BP 115/60; TEMP 97.9; O2SAT 93
[2024-03-07 11:15] VITALS: BP 141/75; TEMP 98.2; O2SAT 96
[2024-03-07] MEDS: methylPREDNISolone SOD SUCC 40 MG/ML VIAL IV ONE (12:32)
[2024-03-07 15:14] VITALS: BP 118/65; TEMP 98.4; O2SAT 95
[2024-03-07] MEDS ORDERED: SWABABLE VALVE TRANSFER SET EA MC ONE (16:43)
[2024-03-07] MEDS ORDERED: IV NORMAL SALINE 250 ML IV ONE (16:43)
[2024-03-07] MEDS ORDERED: IOHEXOL 300MG/ML 100 ML INFUS..BTL ONE (16:43)
[2024-03-07] MEDS: DIVALPROEX SPRINKLE 125 MG CAP.SPRINK PO SCH (16:45)
[2024-03-07 19:30] VITALS: BP 125/60; TEMP 97.7; O2SAT 93
[2024-03-07] MEDS: INSULIN REGULAR, HUMAN 300 UNITS/3 ML VIAL SQ PRN (20:04)
[2024-03-07] MEDS ORDERED: OLANZAPINE 2.5 MG TABLET PO SCH (21:00)
[2024-03-08 06:07] VITALS: BP 109/61; TEMP 98.2; O2SAT 96
[2024-03-08] MEDS: LEVOTHYROXINE SODIUM 50 MCG TABLET PO SCH (06:23)
[2024-03-08] MEDS ORDERED: GLIM2TAB PO (10:32)
[2024-03-08] MEDS ORDERED: DIVA125C2 PO (10:32)
[2024-03-08] MEDS ORDERED: ACET325T53 PO (10:32)
[2024-03-08] MEDS ORDERED: LEVO50TA8 PO (10:32)
[2024-03-08] MEDS ORDERED: IBUP-1953 PO (10:48)
[2024-03-08 11:10] VITALS: BP 136/73; TEMP 97.6; O2SAT 99
[2024-03-10] MEDS ORDERED: METFORMIN HCL 500 MG TABLET PO SCH (08:00)
== END 2024-03-08 15:20 | DRG 73 ==
LOC: ER 12:21 → MEDSURG3 22:22
PROVIDERS: ADMIT Internal Medicine; ATTEND Internal Medicine
DX: S34.6XXA Injury of peripheral nerve(s) at abdomen, lower back and pelvis level, initial encounter (principal); G93.41 Metabolic encephalopathy; N17.0 Acute kidney failure with tubular necrosis; D68.59 Other primary thrombophilia; S76.911A Strain of unspecified muscles, fascia and tendons at thigh level, right thigh, initial encounter; X58.XXXA Exposure to other specified factors, initial encounter; Y92.129 Unspecified place in nursing home as the place of occurrence of the external cause; E86.0 Dehydration; E11.40 Type 2 diabetes mellitus with diabetic neuropathy, unspecified; M15.9 Polyosteoarthritis, unspecified; E03.9 Hypothyroidism, unspecified; Z79.890 Hormone replacement therapy; F45.8 Other somatoform disorders; E66.9 Obesity, unspecified; Z68.25 Body mass index [BMI] 25.0-25.9, adult; Z74.09 Other reduced mobility; E05.90 Thyrotoxicosis, unspecified without thyrotoxic crisis or storm; M81.0 Age-related osteoporosis without current pathological fracture; I25.10 Atherosclerotic heart disease of native coronary artery without angina pectoris; I11.9 Hypertensive heart disease without heart failure; F31.9 Bipolar disorder, unspecified; Z79.899 Other long term (current) drug therapy; Z79.84 Long term (current) use of oral hypoglycemic drugs; F41.9 Anxiety disorder, unspecified; G89.29 Other chronic pain
CPT/HCPCS: 36415; 72131; 73551; 83735; 84100; 84443; 85025; 86140; A4606; A4663; G0378; J1170; J1815; J2920; Q0162; Q9967